=== PATIENT | male | born 1935 | race Caucasian/White ===

== ENCOUNTER 2020-11-10 08:23 | Emergency (ER) | payer OTHER ==
[2020-11-10 09:17] LABS: HEMOGLOBIN 16.9 gm/dl (14.0-17.5); RED BLOOD COUNT 5.26 M/UL (4.20-5.50); WHITE BLOOD COUNT 6.6 K/UL (4.5-11.0)
[2020-11-10 09:54] LABS: BUN/CREATININE RATIO 14 (0-10)
== END 2020-11-10 19:00 | disposition short-term general hospital (02) ==
LOC: ER1 08:23
PROVIDERS: Nurse Practitioner
DX: K40.90 Unilateral inguinal hernia, without obstruction or gangrene, not specified as recurrent (principal); N13.2 Hydronephrosis with renal and ureteral calculous obstruction; N39.0 Urinary tract infection, site not specified; I10 Essential (primary) hypertension; E03.9 Hypothyroidism, unspecified; Z90.49 Acquired absence of other specified parts of digestive tract
CPT/HCPCS: 71045; 80053; 81001; 82550; 82553; 83605; 83690; 84484; 85025; 87077; 87086; 87186; 93005; 96374; 96375; 96376; 99285; J0696; J2270; J2405

== ENCOUNTER → 2020-12-20 | Outpatient (CLI) | payer OTHER | LOC: LAB 10:30 → LBRF 10:30 | PROVIDERS: Family Medicine | DX: E78.5 Hyperlipidemia, unspecified (principal); I10 Essential (primary) hypertension; E03.9 Hypothyroidism, unspecified; E55.9 Vitamin D deficiency, unspecified | CPT/HCPCS: 80053; 80061; 84439; 84443 ==

== ENCOUNTER 2021-06-29 01:09 | Emergency (ER) | payer OTHER ==
[2021-06-29 03:02] LABS: RED BLOOD COUNT 5.27 M/UL (4.20-5.50); WHITE BLOOD COUNT 14.6 K/UL (4.5-11.0)
[2021-06-29 03:42] LABS: BUN/CREATININE RATIO 14 (0-10)
[2021-06-29 05:22] LABS: HEMOGLOBIN 15.7 gm/dl (14.0-17.5); RED BLOOD COUNT 4.93 M/UL (4.20-5.50); WHITE BLOOD COUNT 14.9 K/UL (4.5-11.0)
== END 2021-06-29 06:40 | disposition home or self-care (01) ==
LOC: ER1 01:09
PROVIDERS: Family Medicine
DX: K40.30 Unilateral inguinal hernia, with obstruction, without gangrene, not specified as recurrent (principal); G20 Parkinson's disease; F02.80 Dementia in other diseases classified elsewhere, unspecified severity, without behavioral disturbance, psychotic disturbance, mood disturbance, and anxiety
CPT/HCPCS: 80053; 82550; 82553; 83605; 83690; 83874; 84484; 85025; 87077; 87086; 87186; 99284

== ENCOUNTER → 2021-07-15 | Outpatient (CLI) | payer OTHER ==
[~2021-07-15] MED LIST: AZILECT1 MG PO; CARBIDOPA-LEVO1 EA14 PO; COQ10 PO; FISH OIL 1,0001 EAC8 PO; FLOMAX 0.4 MG0.4 MG PO; HYDROCODON-ACE1 EAC6 PO; LASIX20 MG PO; LEVOTHYROXINE25 MC1 PO; LO-DOSE ASPIRIN81 MG PO; POTASSIUM CHLO10 ME1 PO; PROSCAR5 MG PO; PROTONIX40 MG PO; STOOL SOFTNER PO; VITAMIN B12 PO; VITAMIN D325 MCG PO; [UNRECOGNIZED DRUG - OTHER] PO
[2021-07-15 11:47] LABS: HEMOGLOBIN 16.4 gm/dl (14.0-17.5); RED BLOOD COUNT 5.27 M/UL (4.20-5.50); WHITE BLOOD COUNT 7.3 K/UL (4.5-11.0)
== END ==
LOC: OPSV2 10:30
PROVIDERS: Anesthesiology
DX: Z01.818 Encounter for other preprocedural examination (principal); R94.31 Abnormal electrocardiogram [ECG] [EKG]; I25.2 Old myocardial infarction
CPT/HCPCS: 36415; 80048; 85025; 93005

== ENCOUNTER → 2021-07-19 | Day surgery (SDC) | payer OTHER | END | disposition home or self-care (01) | LOC: OR 05:51 | DX: K40.90 Unilateral inguinal hernia, without obstruction or gangrene, not specified as recurrent (principal); G20 Parkinson's disease; F02.80 Dementia in other diseases classified elsewhere, unspecified severity, without behavioral disturbance, psychotic disturbance, mood disturbance, and anxiety; I12.9 Hypertensive chronic kidney disease with stage 1 through stage 4 chronic kidney disease, or unspecified chronic kidney disease; N18.9 Chronic kidney disease, unspecified; N40.0 Benign prostatic hyperplasia without lower urinary tract symptoms; K21.9 Gastro-esophageal reflux disease without esophagitis; E03.9 Hypothyroidism, unspecified; Z20.822 Contact with and (suspected) exposure to COVID-19; Z86.73 Personal history of transient ischemic attack (TIA), and cerebral infarction without residual deficits; Z79.82 Long term (current) use of aspirin; Z90.49 Acquired absence of other specified parts of digestive tract | CPT/HCPCS: C1781; J0690; J1100; J1170; J2704; J3010; J7040; J7120 ==

== ENCOUNTER → 2021-10-04 | Outpatient (CLI) | payer OTHER | LOC: EXRD 13:34 | DX: R05.9 Cough, unspecified (principal); J98.11 Atelectasis; J90 Pleural effusion, not elsewhere classified | CPT/HCPCS: 71046 ==